=== PATIENT | female | born 1965 ===

== ENCOUNTER 2017-12-27 19:03 | Emergency (ER) | payer MEDICAID ==
[2017-12-27 19:10] VITALS: RESP 18; O2SAT 100
[2017-12-27] MEDS ORDERED: Sodium Chloride 0.9% 1,000 ML IV ONE (19:45)
[2017-12-27] MEDS ORDERED: Sodium Chloride 0.9% 1,000 ML ONE (19:56)
[2017-12-27 19:58] LABS: BASO # 0.1 K/uL (0.0-0.2); BASO % 0.9 % (0.0-2.0); EOS # 0.1 K/uL (0.0-0.7); EOS % 2.2 % (0.0-4.0); HEMOGLOBIN 13.7 g/dL (11.0-16.0); LYMPH # 3.7 K/uL (1.0-4.3); LYMPH % 60.5 % (20.0-40.0); MEAN CELL VOLUME 85.5 fL (81.0-99.0); MEAN CORPUSCULAR HEMOGLOBIN 28.8 pg (27.0-31.0); MEAN CORPUSCULAR HGB CONC 33.6 g/dL (33.0-37.0); MEAN PLATELET VOLUME 8.5 fL (7.2-11.7); MONO # 0.5 K/uL (0.0-0.8); MONO % 8.8 % (0.0-10.0); NEUT # 1.7 K/uL (1.8-7.0); NEUT % 27.6 % (50.0-75.0); NRBC % 0.1 % (0.0-2.0); RBC 4.75 Mil/uL (3.80-5.20); RED CELL DISTRIBUTION WIDTH 14.1 % (11.5-14.5); WHITE BLOOD COUNT 6.2 K/uL (4.8-10.8)
[2017-12-27 20:11] LABS: ALB/GLOB RATIO 0.9 (1.0-2.1); ALBUMIN 4.5 g/dL (3.5-5.0); ALT/SGPT 21 U/L (9-52); AST/SGOT 33 U/L (14-36); BLOOD UREA NITROGEN 14 mg/dL (7-17); CALCIUM 10.1 mg/dl (8.6-10.4); GFR AFRICAN-AMERICAN > 60; GFR NON-AFRICAN AMERICAN > 60; LIPASE 158 U/L (23-300)
[2017-12-27 20:16] LABS: SQUAMOUS EPITHIAL 1 /hpf (0-5); URINE BACTERIA RARE (<OCC); URINE BILIRUBIN NEGATIVE (NEGATIVE); URINE BLOOD NEGATIVE (NEGATIVE); URINE CLARITY Clear (Clear); URINE COLOR Colorless (YELLOW); URINE GLUCOSE (UA) NORMAL (Normal); URINE LEUKOCYTE ESTERASE 1+ Leu/uL (Negative); URINE PROTEIN NEGATIVE (NEGATIVE); URINE UROBILINOGEN NORMAL mg/dL (0.2-1.0)
--- NOTE | 2017-12-27 20:31 | C.PDOC ---
Time Seen by Provider: 12/27/17 19:35 Chief Complaint (Nursing): Abdominal Pain History Per: Patient Onset/Duration Of Symptoms: Days (1), Intermittent Episodes Current Symptoms Are (Timing): Still Present Severity: Mild Location Of Pain/Discomfort: LLQ Quality Of Discomfort: "Pain" Exacerbating Factors: Movement (?) Alleviating Factors: None Additional History Per: Prior Records Abnormal Vaginal Bleeding: No Last Menstral Period: Menopause Past Medical History Reviewed: Historical Data, Nursing Documentation, Vital Signs Vital Signs: Last Vital Signs Temp 97.8 F 12/27/17 19:07 Pulse 70 12/27/17 19:07 Resp 18 12/27/17 19:07 BP 134/84 12/27/17 19:07 Pulse Ox 100 12/27/17 19:07 - Medical History PMH: No Chronic Diseases Surgical History: Appendectomy - [facility] LAPAROSCOP APPENDECTOMY (04/06/14) Family History: States: Unknown Family Hx - Social History Hx Tobacco Use: No Hx Alcohol Use: No Hx Substance Use: No - Immunization History Hx Tetanus Toxoid Vaccination: No Hx Influenza Vaccination: No Hx Pneumococcal Vaccination: No Review Of Systems Except As Marked, All Systems Reviewed And Found Negative. Constitutional: Negative for: Fever, Weakness Cardiovascular: Negative for: Chest Pain Respiratory: Negative for: Shortness of Breath Gastrointestinal: Positive for: Abdominal Pain. Negative for: Vomiting, Diarrhea, Melena, Hematochezia, Hematemesis, Rectal Pain Genitourinary: Positive for: Frequency. Negative for: Dysuria, Vaginal Discharge, Vaginal Bleeding Musculoskeletal: Negative for: Neck Pain, Back Pain Skin: Negative for: Rash Neurological: Negative for: Weakness, Numbness Physical Exam - Physical Exam Appears: Non-toxic, No Acute Distress Skin: Normal Color, Warm, Dry, No Rash Head: Atraumatic, Normacephalic Eye(s): bilateral: Normal Inspection, PERRL, EOMI Neck: Normal ROM, Supple Cardiovascular: Rhythm Regular Respiratory: Normal Breath Sounds, No Accessory Muscle Use Gastrointestinal/Abdominal: Soft, Tenderness (mild LLQ), No Guarding, No Rebound Back: No CVA Tenderness Extremity: Normal ROM Neurological/Psych: Oriented x3, Normal Motor, Normal Sensation ED Course And Treatment - Laboratory Results Result Diagrams: 12/27/17 19:54 12/27/17 19:54 Interpretation Of Abnormal: Possible UTI. O2 Sat by Pulse Oximetry: 100 Pulse Ox Interpretation: Normal Progress Note: Pt feels much better. No abdominal pain or tenderness. Reassessment Condition: Improved Progress - Interventions Interventions:: Observation, Intravenous fluid - Medications Administered Intravenous: NSAID - Data Reviewed Data Reviewed: Lab, Old records - Patient Status Patient status: Mostly improved - Continuity of Care Discussed patient case with:: Patient, ED Nurse - Patient Plan Patient Plan: Discharge, F/U with PCP Medical Decision Making Medical Decision Making: I discussed with pt that since symptoms improved and blood work is normal, there is no need for CT scan. I instructed pt to return for a CT scan if symptoms persist or worsen. Disposition Counseled Patient/Family Regarding: Studies Performed, Diagnosis, Need For Followup, Rx Given - Disposition Disposition: HOME/ ROUTINE Disposition Time: 20:34 Condition: IMPROVED Additional Instructions: Drink plenty of fluids. Follow up with your doctor for further evaluation and treatment. Return to the ER if you develop fever, vomiting, worsening of symptoms or if you have any other concerns. Prescriptions: Ciprofloxacin [Cipro] 1 tab PO BID #10 tab Ibuprofen [Motrin Tab] 600 mg PO TID PRN #30 tab PRN Reason: Pain, Moderate (4-7) Instructions: Urinary Tract Infection, Adult (DC) Forms: [facility] (Sl[place]ak), General Discharge Instructions - Clinical Impression Clinical Impression: LLQ abdominal pain, UTI (urinary tract infection)
[2017-12-27 20:57] VITALS: BP 104/68; PULSE 62; TEMP 97.7
== END 2017-12-27 21:03 | disposition home or self-care (01) ==
LOC: C.ER 19:03
DX: N39.0 Urinary tract infection, site not specified (principal); R10.32 Left lower quadrant pain
CPT/HCPCS: 80053; 81001; 83690; 85025; 96361; 96374; 99284; J1885; J7040

== ENCOUNTER 2019-02-12 10:02 | Outpatient (CLI) | payer MEDICAID | END 2019-02-12 10:03 | disposition home or self-care (01) | LOC: C.MAMMO 10:03 | DX: Z12.31 Encounter for screening mammogram for malignant neoplasm of breast (principal) ==